=== PATIENT | female | born 1995 | race Caucasian/White ===

== ENCOUNTER → 2017-06-16 | Outpatient (CLI) | payer MEDICAID ==
[~2017-06-16] MED LIST: AMOX875 PO; NAPR500 PO
== END ==
LOC: HPND 08:59
PROVIDERS: ATTEND Obstetrics & Gynecology
DX: O36.63X1 Maternal care for excessive fetal growth, third trimester, fetus 1 (principal); Z3A.00 Weeks of gestation of pregnancy not specified
CPT/HCPCS: 76816

== ENCOUNTER 2017-06-30 18:33 | Emergency (ER) | payer MEDICAID ==
--- NOTE | 2017-06-30 19:02 | PD ---
HPI Chief Complaint Swelling, headache Travel History International Travel<30 Days: No Contact w/Intl Traveler<30Days: No Known Affected Area: No History of Present Illness HPI 22-year-old 012, IUP at 35.0 care uncomplicated by patient report. The patient presents reporting that she's been swelling "really bad" over the past 1 month, with the swelling increasing over the past 2 days. She also reports an associated headache that she has had 6 hours. She reports the headache did not resolve with Tylenol. She reports that she occasionally has visual spots throughout the day and these occur about 4 times per day. She reports good movement. She denies any leaking fluid or vaginal bleeding. She denies any painful contractions or cramping. She reports that her mother called Dr. Tariq's office about the headache and swelling and she was instructed to come to the hospital. Weeks Gestation: 35 Para: 2 : 4 History Past Medical History Medical History: Denies Significant Hx Obstetric History Obstetric History 012 2 full-term NSVDs SAB 1 Past Surgical History Narrative Surgical D&C Family History Family History: Negative Social History Alcohol Use: No Tobacco Use: No Substance Abuse: No Allergies-Medications (Allergen,Severity, Reaction): Coded Allergies: No Known Allergies (Unverified , 04/16/15) Home Meds Active Scripts Naproxen (Naprosyn) 500 Mg Tab, 500 MG PO BID, #20 TAB Prov:Louisa Craig MD 01/14/16 Reported Medications Amoxicillin (Amoxicillin) 875 Mg Tab, 875 MG PO BID, #14 TAB 01/14/16 Review of Systems Except as stated in HPI: all other systems reviewed are Neg Eyes: Visual changes Neurologic: Headache Physical Exam Narrative GENERAL: Well-nourished, well-developed patient. SKIN: Warm and dry. HEAD: Normocephalic and atraumatic. EYES: No scleral icterus. No injection or drainage. ENT: No nasal drainage noted. Mucous membranes pink. Airway patent. NECK: Supple, trachea midline. No JVD. CARDIOVASCULAR: Regular rate and rhythm without murmurs, gallops, or rubs. RESPIRATORY: Breath sounds equal bilaterally. No accessory muscle use. BREASTS: Deferred. ABDOMEN/GI: Abdomen soft, non-tender, bowel sounds present, no rebound, no guarding Gravid GENITOURINARY: External Genitalia: intact and normal in appearance BUS glands: [-] Cervix: [-] Dilatation: [-] Effacement: [-] Station: [-] Presentation: [-] Membranes: [intact or ruptured] Uterine Contractions: [-] FHT's: See separate note. heart rate baseline 120s with moderate long- term variability, good accelerations, no decelerations EXTREMITIES: No cyanosis or edema. BACK: Nontender without obvious deformity. No CVA tenderness. NEUROLOGICAL: Awake and alert. Motor and sensory grossly within normal limits. Five out of 5 muscle strength in all muscle groups. Normal speech. DT are 2+. Psychiatric: Grossly normal memory and affect Musculoskeletal: Grossly normal range of motion, gait, muscle strength Data Data Orders Orders Vital Signs (Adult) .ON ADMISSION (06/30/17 18:54) ^ Labor Status (06/30/17 18:54) Urinalysis - C+S If Indicated (06/30/17 18:54) ^ Non Stress Test (06/30/17 18:54) ^ Hydration (06/30/17 18:54) Cbc No Diff, Includes Plts (06/30/17 18:54) Comprehensive Metabolic Panel (06/30/17 18:54) Uric Acid (06/30/17 18:54) Protein Creat Ratio, Random Ur (06/30/17 18:54) MDM Narrative Course / MDM Assessment/plan: 1. IUP at 35.0 2. Headache, swelling, and visual changes: Normal blood pressure on presentation, no evidence of preeclampsia on laboratory evaluation with normal protein creatinine ratio, normal LFTs, normal platelets, and normal uric acid. Strict preeclampsia precautions were given. 3. well-being: Reassuring testing with reactive NST and category 1 heart rate tracing. FHR was reassuring and appropriate for gestational age. kick counts daily 4. No evidence of labor: Strict labor precautions 5. Follow up with Dr. Tariq in 2-3 days or sooner if needed 6. Mild hypokalemia: Discussed potassium results of 3.2 with patient, offered Rx for KCL however patient declined, patient stated she'll E additional bananas and will follow up with Dr. Tariq as she is scheduled. Will notify Dr. Tariq of laboratory finding. Diagnosis Diagnosis: Primary Impression: 35 weeks gestation of Disposition: 01 DISCHARGE HOME Moraima Thornton MD Jun 30, 2017 19:02
--- NOTE | 2017-06-30 19:12 | HHI.PR ---
Subjective Remarks NST report Indications: IUP at 35 weeks, headache, swelling, visual changes heart rate baseline in the 120s with good accelerations and moderate long- term variability, no decelerations, FHR reassuring and appropriate for gestational age Follow-up as clinically indicated Final diagnosis: IUP at 35 weeks, headache/swelling/visual changes but no evidence of preeclampsia Moraima Thornton MD Jun 30, 2017 19:12
[2017-06-30] MEDS ORDERED: ACETAMIN 325 MG/BUTALBITAL 50 MG/CAFFEINE 40 MG TAB PO ONE (19:15)
[2017-06-30 19:24] VITALS: BP 117/60; PULSE 79; RESP 18
[2017-06-30 19:39] LABS: HEMATOCRIT 29.1 % (35.0-46.0); MEAN CELL VOLUME 89.3 FL (80.0-100.0); MEAN CORPUSCULAR HEMOGLOBIN 29.3 PG (27.0-34.0); MEAN CORPUSCULAR HGB CONC 32.8 % (32.0-36.0); PLATELET COUNT 291 TH/MM3 (150-450); RED BLOOD COUNT 3.26 MIL/MM3 (4.00-5.30); RED CELL DISTRIBUTION WIDTH 13.1 % (11.6-17.2); REVIEW FLAG FINAL; WHITE BLOOD COUNT 14.2 TH/MM3 (4.0-11.0)
[2017-06-30 19:42] LABS: BACTERIA, URINE RARE /hpf; BLOOD, URINE NEG (NEG); COMMENT (UR) CULT NOT INDICATED; CULTURE IF INDICATED CULT NOT INDICATED; GLUCOSE,URINE NEG (NEG); KETONE, URINE NEG (NEG); MUCUS URINE FEW /lpf (OCC); NITRITE,URINE NEG (NEG); PH, URINE 6.5 (5.0-8.5); SQUAMOUS EPITHELIAL CELL URINE 12 /hpf (0-5); URINE COLOR YELLOW (YELLW/STRAW)
[2017-06-30 21:04] LABS: ANION GAP 10 MEQ/L (5-15); AST (GOT) 10 U/L (15-37); BICARBONATE 20.7 MEQ/L (21.0-32.0); BLOOD UREA NITROGEN 7 MG/DL (7-18); CHLORIDE 108 MEQ/L (98-107); GLOMERULAR FILTRATION RATE 170 ML/MIN (>89); POTASSIUM 3.2 MEQ/L (3.5-5.1); SODIUM (NA) 139 MEQ/L (136-145); URIC ACID 2.8 MG/DL (2.6-6.0)
[2017-06-30 21:05] LABS: ALT (GPT) 14 U/L (10-53)
[2017-06-30 21:07] LABS: ALKALINE PHOSPHATASE 124 U/L (45-117); TOTAL BILIRUBIN ADULT 0.2 MG/DL (0.2-1.0)
== END 2017-06-30 21:40 | disposition home or self-care (01) ==
LOC: HOBED 18:33
DX: O26.93 Pregnancy related conditions, unspecified, third trimester (principal); R51 Headache; Z3A.35 35 weeks gestation of pregnancy; E87.6 Hypokalemia
CPT/HCPCS: 36415; 59025; 80053; 81001; 82570; 84156; 84550; 85027; 99283

== ENCOUNTER 2017-07-06 21:41 | Emergency (ER) | payer MEDICAID ==
--- NOTE | 2017-07-06 23:08 | PD ---
HPI Chief Complaint Low back pain possibly leaking fluid Date Seen: Jul 06, 2017 Time Seen: 23:00 Travel History International Travel<30 Days: No Contact w/Intl Traveler<30Days: No Known Affected Area: No History of Present Illness HPI 22-year-old white female 36 weeks tomorrow and go see Dr. Tariq for care and she called him and told about her low back pain today and he told coming checked out, she thought she might be leaking fluid her amnio sure is negative. heart rate tracing is reactive she is not jef, patient has been working on a daily basis. She has small children but her mother takes care of them so she can rest Weeks Gestation: 35 Para: 2 : 4 Miscarriage: 1 History Obstetric History Obstetric History 2 vaginal deliveries and one early loss Social History Alcohol Use: No Tobacco Use: No Substance Abuse: No Allergies-Medications (Allergen,Severity, Reaction): Coded Allergies: No Known Allergies (Unverified , 04/16/15) Home Meds Active Scripts Naproxen (Naprosyn) 500 Mg Tab, 500 MG PO BID, #20 TAB Prov:Louisa Craig MD 01/14/16 Reported Medications Amoxicillin (Amoxicillin) 875 Mg Tab, 875 MG PO BID, #14 TAB 01/14/16 Review of Systems General / Constitutional: No: Fever, Weight Gain, Chills, Other Eyes: No: Diploplia, Blurred Vision, Visual changes, Pain, Photophobia HENT: No: Headaches, Vertigo, Lightheadedness Cardiovascular: No: Irregular Rhythm, Chest Pain or Discomfort, Palpitations, Tachycardia, Syncope, Varicosities, Edema, Cyanosis Respiratory: No: Cough, Short of Breath, Other Gastrointestinal: No: Nausea, Vomiting, Diarrhea Genitourinary: No: Decreased Urinary Output, Oliguria Musculoskeletal: No: Limited ROM, Weakness, Cramping, Edema, Pain Skin: No Rash, No Itching, No Dryness, No Lumps, No Change in Pigmentation, No Change in Nails, No Alopecia, No Lesions Neurologic: No: Weakness, Dizziness, Syncope, Focal Abnormalities, Coordination Problem, Headache, Slurred Speech, Seizures Psychiatric: No: Depression, Suicidal Ideations, Homicidal Ideation Endocrine: No: Heat Intolerance, Cold Intolerance, Polydipsia, Polyuria, Other Physical Exam Narrative GENERAL: Well-nourished, well-developed patient. SKIN: Warm and dry. HEAD: Normocephalic and atraumatic. EYES: No scleral icterus. No injection or drainage. ENT: No nasal drainage noted. Mucous membranes pink. Airway patent. NECK: Supple, trachea midline. No JVD. CARDIOVASCULAR: Regular rate and rhythm without murmurs, gallops, or rubs. RESPIRATORY: Breath sounds equal bilaterally. No accessory muscle use. BREASTS: Bilateral exam showed no masses , no retractions, no nipple discharge. ABDOMEN/GI: Abdomen soft, non-tender, bowel sounds present, no rebound, no guarding Gravid to [36-] weeks size Fundal Height: [-36] GENITOURINARY: External Genitalia: intact and normal in appearance BUS glands: [-] Cervix: [post-] Dilatation: [FT-] Effacement: [-thick] Station: [high-] Presentation: [-vtx] Membranes: [intact amnisure neg] Uterine Contractions: [-0] FHT's: Category: [-1] Baseline: [133-] Reactive: [-yes] Variability: [mod-] Decels: [-0] EXTREMITIES: No cyanosis or edema. BACK: Nontender without obvious deformity. No CVA tenderness. NEUROLOGICAL: Awake and alert. Motor and sensory grossly within normal limits. Five out of 5 muscle strength in all muscle groups. Normal speech. Data Data Labs Urine shows to 1+ protein otherwise negative MDM Interpretation(s) Patient is 22-year-old white female 36 weeks tomorrow presents with low back pain. She said the several days of this is worsening. She denies bleeding , thought she might be leakage of fluid but the amnio sure is negative , baby is active, heart rate tracing is reactive, no contractions, urinalysis shows 1+ protein otherwise is negative no infection seen she has no CVA tenderness and no real tenderness to palpation of the low back either that' s where she hurts the lumbar area. Plan Plan to have the patient a shot of fentanyl for pain, home to bedrest with heating pad or hot bath A, bedrest as much as possible. Request water hydrate use Tylenol liberally. Follow-up with her OB provider Diagnosis Diagnosis: Primary Impression: Low back pain during in third trimester Disposition: 01 DISCHARGE HOME Condition: Stable Akil Pinto II, MD Jul 06, 2017 23:08
== END 2017-07-06 23:46 | disposition home or self-care (01) ==
LOC: HOBED 21:41
DX: O26.893 Other specified pregnancy related conditions, third trimester (principal); M54.5 Low back pain; Z3A.35 35 weeks gestation of pregnancy
CPT/HCPCS: 59025; 84112; 96372; 99284; J3010

== ENCOUNTER → 2017-07-19 | Outpatient (CLI) | payer MEDICAID | LOC: HPND 10:37 | PROVIDERS: ATTEND Obstetrics & Gynecology | DX: O26.843 Uterine size-date discrepancy, third trimester (principal); Z3A.37 37 weeks gestation of pregnancy | CPT/HCPCS: 76816 ==

== ENCOUNTER 2017-07-20 20:46 | Emergency (ER) | payer MEDICAID ==
[~2017-07-20] VITALS: Ht 175.3 cm; Wt 98.0 kg
--- NOTE | 2017-07-20 23:13 | PD ---
HPI Chief Complaint Cramping, lower back cramps Travel History International Travel<30 Days: No Contact w/Intl Traveler<30Days: No Known Affected Area: No History of Present Illness HPI 22-year-old 012, IUP at 37.6 care uncomplicated per patient report The patient presents complaining of cramping and lower back pain. She describes the lower back pain as lower back cramping which are further described as "back contractions". She reports that she has been experiencing symptoms since this morning; however over the past 2 hours prior to presentation , she reports that these cramping and contractions were increased in intensity and have increased to every 5-6 minutes. She denies any leaking of fluid or vaginal bleeding although reported some increased discharge after the vaginal exam. She reports that initially the baby was not moving as frequently today however upon presentation she reports good movement that is normal. She reports that she was last checked in the office was 3 cm dilated. Weeks Gestation: 37 Para: 2 : 4 History Past Medical History Medical History: Denies Significant Hx Obstetric History Obstetric History 012 2 SAB 1 Past Surgical History Narrative Surgical D&C Family History Narrative Family History Her mother has had a DVT and PE Social History Alcohol Use: No Tobacco Use: No Substance Abuse: No Allergies-Medications (Allergen,Severity, Reaction): Coded Allergies: No Known Allergies (Unverified Adverse Reaction, Unknown, 07/20/17) Home Meds Active Scripts Naproxen (Naprosyn) 500 Mg Tab, 500 MG PO BID, #20 TAB Prov:Louisa Craig MD 01/14/16 Reported Medications Amoxicillin (Amoxicillin) 875 Mg Tab, 875 MG PO BID, #14 TAB 01/14/16 Review of Systems Except as stated in HPI: all other systems reviewed are Neg Physical Exam Narrative GENERAL: Well-nourished, well-developed patient. SKIN: Warm and dry. HEAD: Normocephalic and atraumatic. EYES: No scleral icterus. No injection or drainage. ENT: No nasal drainage noted. Mucous membranes pink. Airway patent. NECK: Supple, trachea midline. No JVD. CARDIOVASCULAR: Regular rate and rhythm without murmurs, gallops, or rubs. RESPIRATORY: Breath sounds equal bilaterally. No accessory muscle use. BREASTS: Deferred ABDOMEN/GI: Abdomen soft, non-tender, bowel sounds present, no rebound, no guarding Gravid GENITOURINARY: External Genitalia: intact and normal in appearance. Grossly normal BUS. There are no cervical or vaginal masses noted. There is grossly normal rugae, and physiologic discharge is noted. Her initial vaginal exam was 3/50/high and posterior. Subsequent layers speculum examination was performed with negative Valsalva and no pooling or other evidence of ROM. Amniosure was negative FHT's: Please see separately dictated BPP report. heart rate baseline is in the 130s with moderate long-term variability, good accelerations, no decelerations on review of the tracing. FHR is reassuring and appropriate for gestational age. EXTREMITIES: No cyanosis or edema. BACK: Nontender without obvious deformity. NEUROLOGICAL: Awake and alert. Motor and sensory grossly within normal limits. Five out of 5 muscle strength in all muscle groups. Normal speech Psychiatric: Grossly normal memory and affect Musculoskeletal: Grossly normal ROM, gait, muscle strength. MDM Plan Assessment/plan: 1. IUP at 37.6 2. Contractions at term: No evidence of active labor with unchanged cervical exam greater than 1 hour and irregular contraction pattern, strict labor precautions. No evidence of rupture of membranes with negative amniosure, strict PROM precautions. 3. Reassuring testing with reactive NST and biophysical profile 8 out of 8 (10 out of 10 with reactive NST). heart rate tracing reassuring and appropriate for gestational age. kick counts daily. 4. Follow-up with Dr. Tariq in 2-3 days or sooner if needed 5. Strict labor precautions Diagnosis Diagnosis: Primary Impression: 37 weeks gestation of Additional Impression: False labor before 37 completed weeks of gestation Disposition: 01 DISCHARGE HOME Condition: Moraima Calixto MD Jul 20, 2017 23:13
--- NOTE | 2017-07-20 23:20 | PD ---
History of Present Illness History of Present Illness NST/BPP report Indications: IUP at 37 weeks, decreased movement earlier today however now reporting normal movement, contractions at term Biophysical profile was performed with greater than 30 seconds breathing, greater than 3 gross body movements, than 1 episode of flexion-extension , and normal ARABELLA of 13.16 with pockets measured as 5.35, 2.13, 2.66, and 3.02 FHR NST was performed Baseline 130s, moderate long-term variability, good accelerations, no decelerations consistent with reactive NST and category 1 heart rate tracing that is reassuring and appropriate for gestational age Follow-up: Patient is follow-up as clinically appropriate Final diagnosis: IUP at 37 weeks, reassuring testing, no evidence of active labor Moraima Thornton MD Jul 20, 2017 23:20
== END 2017-07-20 23:25 | disposition home or self-care (01) ==
LOC: HOBED 20:46
DX: O36.8130 Decreased fetal movements, third trimester, not applicable or unspecified (principal); Z3A.37 37 weeks gestation of pregnancy; Z79.899 Other long term (current) drug therapy
CPT/HCPCS: 76815; 84112

== ENCOUNTER 2017-07-26 11:48 | Emergency (ER) | payer MEDICAID ==
[~2017-07-26] VITALS: Ht 175.3 cm; Wt 99.3 kg
[2017-07-26 12:20] VITALS: BP 119/69; PULSE 90
--- NOTE | 2017-07-26 12:23 | PD ---
HPI Chief Complaint Elevated blood pressures and shortness of breath Date Seen: Jul 26, 2017 Time Seen: 12:00 (Clemente Jurado MD R1) Travel History International Travel<30 Days: No Contact w/Intl Traveler<30Days: No Known Affected Area: No (Clemente Jurado MD R1) History of Present Illness HPI 22-year-old at 38 weeks and 5 days presents to the ED after having elevated blood pressures and [facility] office. Patient states blood pressures were elevated in the 150s systolic over 80s diastolic. Patient also states that she has had trouble catching her breath both at rest and with exertion over the past couple days. Patient denies headache, vision changes, lower extremity swelling, fever, chills. Patient does state that she had left substernal chest pain several nights ago that has resolved and she has no chest pain currently. She also has had nausea, but this is unchanged from the rest of this . Patient reports good movement, no contractions, no vaginal bleeding, or gush of fluid. Weeks Gestation: 38 Para: 2 : 4 Miscarriage: 1 (Clemente Jurado MD R1) History Past Medical History Narrative Medical Elevated blood pressures during her last No hypertension at baseline No complications during this No other past medical history (Clemente Jurado MD) Obstetric History Obstetric History Both prior deliveries were vaginal and at term One miscarriage with D&C (Clemente Jurado MD R1) Past Surgical History Narrative Surgical D&C No other surgeries (Clemente Jurado MD) Social History Narrative Social History Lives with her boyfriend in the area Denies alcohol tobacco or drug use (Clemente Jurado MD R1) Allergies-Medications (Allergen,Severity, Reaction): Coded Allergies: No Known Allergies (Verified Adverse Reaction, Unknown, 07/26/17) Home Meds Active Scripts Naproxen (Naprosyn) 500 Mg Tab, 500 MG PO BID, #20 TAB Prov:Louisa Craig MD 01/14/16 Reported Medications Amoxicillin (Amoxicillin) 875 Mg Tab, 875 MG PO BID, #14 TAB 01/14/16 Review of Systems Except as stated in HPI: all other systems reviewed are Neg General / Constitutional: No: Fever, Chills Eyes: No: Blurred Vision, Visual changes HENT: No: Headaches Cardiovascular: Chest Pain or Discomfort Respiratory: Short of Breath Gastrointestinal: Nausea, No: Vomiting, Diarrhea Genitourinary: No: Dysuria (Clemente Jurado MD R1) Physical Exam Narrative GENERAL: Well-nourished, well-developed patient. SKIN: Warm and dry. HEAD: Normocephalic and atraumatic. EYES: No scleral icterus. No injection or drainage. ENT: No nasal drainage noted. Mucous membranes pink. Airway patent. NECK: Supple, trachea midline. No JVD. CARDIOVASCULAR: Regular rate and rhythm without murmurs, gallops, or rubs. RESPIRATORY: Breath sounds equal bilaterally. No accessory muscle use. ABDOMEN/GI: Abdomen soft, non-tender, bowel sounds present, no rebound, no guarding EXTREMITIES: No cyanosis, trace edema. BACK: Nontender without obvious deformity. No CVA tenderness. NEUROLOGICAL: Awake and alert. Motor and sensory grossly within normal limits. Five out of 5 muscle strength in all muscle groups. Normal speech. NST: Baseline 130's, reactive, moderate variability. Category I tracing. No decelerations (Clemente Jurado MD R1) Data Data Orders Orders Vital Signs (Adult) .ON ADMISSION (07/26/17 12:11) ^ Labor Status (07/26/17 12:11) ^ Non Stress Test (07/26/17 12:11) ^ Hydration (07/26/17 12:11) (Clemente Jurado MD R1) MDM Interpretation(s) 22-year-old at 38 weeks and 5 days presenting with elevated blood pressures at outside clinic. Blood pressure in OB ED was 119 systolic over 68 diastolic Plan Serial blood pressure within normal limits at this time. NST strip reactive with category 1 tracing was. Reassuring Patient denies significant preeclampsia-like symptoms No further workup at this time. Patient instructed to return if symptoms develop (Clemente Jurado MD R1) Diagnosis Diagnosis: Primary Impression: SOB (shortness of breath) Additional Impression: Nausea Ruled Out: Preeclampsia, Gestational hypertension Disposition: DISCHARGE HOME Condition: Stable Collaborating MD Comments Patient is normotensive presently. No urine protein in office. Serial blood pressures here are normal. Will follow up on as scheduled. (Riana De La Vega MD) Clemente Jurado MD R1 Jul 26, 2017 12:23 Riana De La Vega MD Jul 27, 2017 09:33
[2017-07-26 12:28] VITALS: TEMP 98.3
[2017-07-26 12:29] VITALS: RESP 18
[2017-07-28] MEDS ORDERED: PREN29CH PO (07:22)
== END 2017-07-26 13:27 | disposition home or self-care (01) ==
LOC: HOBED 11:48
DX: O26.893 Other specified pregnancy related conditions, third trimester (principal); R06.02 Shortness of breath; R11.0 Nausea; Z3A.38 38 weeks gestation of pregnancy
CPT/HCPCS: 59025

== ENCOUNTER 2017-07-28 05:58 | Inpatient (IN) | payer MEDICAID ==
[2017-07-28] VITALS (52 sets, daily range): BP systolic 91–125; BP diastolic 29–82; PULSE 61–91; RESP 17–20; TEMP 97.8–98.2; O2SAT 99
[~2017-07-28] VITALS: Ht 175.3 cm; Wt 99.0 kg
[2017-07-28] MEDS ORDERED: LIDOCAINE HCL 1% 50 ML VIAL INFIL PRN (06:30)
[2017-07-28] MEDS ORDERED: OXYTOCIN 30 UNITS/NS 500ML PREMIX IV SCH (06:30)
[2017-07-28] MEDS ORDERED: MINERAL OIL 10 ML VIAL TOPICAL PRN (06:30)
[2017-07-28] MEDS ORDERED: NS 1000 ML IV PRN (06:30)
[2017-07-28] MEDS ORDERED: CITRIC ACID-SODIUM CITRATE LIQ 30 ML UDC PO SCH (06:30)
[2017-07-28] MEDS ORDERED: NS 500 ML BOLUS IV PRN (06:30)
[2017-07-28] MEDS ORDERED: LACTATED RINGER'S 1000 ML IV SCH (06:30)
[2017-07-28] MEDS ORDERED: OXYTOCIN 30 UNITS 500ML PREMIX IV ONE (06:30)
[2017-07-28] MEDS ORDERED: LACTATED RINGER'S 1000 ML BOLUS IV PRN (06:30)
[2017-07-28] MEDS ORDERED: LIDOCAINE HCL 1% 50 ML VIAL I-DERMAL PRN (06:30)
[2017-07-28] MEDS ORDERED: PENICILLIN G POT 5,000,000 UNITS/NS 100 ML (Mini-Bag Plus) IV ONE ×2 (06:30)
[2017-07-28 07:04] LABS: AUTOMATED NEUTROPHIL # 9.9 TH/MM3 (1.8-7.7); BASOPHIL % 0.3 % (0.0-2.0); EOSINOPHIL # 0.2 TH/MM3 (0-0.4); EOSINOPHIL % 1.2 % (0.0-4.0); HEMATOCRIT 29.7 % (35.0-46.0); HEMO FLAGS DIFF FINAL; LYMPH % 20.3 % (9.0-44.0); LYMPHOCYTE # 2.9 TH/MM3 (1.0-4.8); MEAN CELL VOLUME 87.2 FL (80.0-100.0); MEAN CORPUSCULAR HEMOGLOBIN 28.5 PG (27.0-34.0); MEAN CORPUSCULAR HGB CONC 32.6 % (32.0-36.0); MONO % 9.6 % (0.0-8.0); NEUT % 68.6 % (16.0-70.0); PLATELET COUNT 319 TH/MM3 (150-450); RED BLOOD COUNT 3.41 MIL/MM3 (4.00-5.30); RED CELL DISTRIBUTION WIDTH 14.3 % (11.6-17.2); WHITE BLOOD COUNT 14.5 TH/MM3 (4.0-11.0)
[2017-07-28 07:18] LABS: BACTERIA, URINE RARE /hpf; BLOOD, URINE NEG (NEG); COMMENT (UR) CULT NOT INDICATED; CULTURE IF INDICATED CULT NOT INDICATED; GLUCOSE,URINE NEG (NEG); KETONE, URINE NEG (NEG); MUCUS URINE FEW /lpf (OCC); NITRITE,URINE NEG (NEG); PH, URINE 6.5 (5.0-8.5); SQUAMOUS EPITHELIAL CELL URINE 6 /hpf (0-5); URINE COLOR YELLOW (YELLW/STRAW)
[2017-07-28] MEDS ORDERED: PREN29CH PO ×2 (07:22)
--- NOTE | 2017-07-28 08:23 | MH ---
cc: LANA BATES DATE OF ADMISSION: 07/28/2017 HISTORY OF PRESENT ILLNESS Mr. Toure is a 22-year-old white female para 2-0-1-2 who is admitted for elective induction of labor. The she is 39 weeks by early ultrasound and dates. She was seen in the office and was checked; she was 3 cm, 70%, vertex -2 and soft. She asked for induction today. She is being brought in for rupture of membranes and Pitocin if needed. HER PAST OB HISTORY She is para 2-0-1-2. She has had two NSVDs. She had a D&C for a missed AB. 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 Trichomonas which was treated earlier in . PAST MEDICAL HISTORY Remarkable for D&C. PAST MEDICAL HISTORY Remarkable for sleep apnea. ALLERGIES No known drug allergies. CURRENT MEDICATIONS 1. vitamins. 2. Zantac. SOCIAL HISTORY She does not smoke, does not drink, does not take drugs. She is single. FAMILY HISTORY Remarkable for lung cancer and blood clots. REVIEW OF SYSTEMS No headaches, no shortness of breath, chest pressure or pain. She is having no real abdominal pain or regular uterine contractions. She denies any bleeding or rupture of membranes. The baby is moving well. PHYSICAL EXAMINATION GENERAL: A well-developed, well-nourished female in no acute distress, resting comfortably. VITAL SIGNS: Her temperature is 98.2, her pulse was 91. Her respirations are 18. Her blood pressure is 120/66. HEENT: Normocephalic, atraumatic. NECK: Supple. Trachea is in the midline. CHEST: Clear to auscultation and percussion. HEART: Regular rate and rhythm. ABDOMEN: The abdomen is soft and nontender. Fundal height is appropriate. PELVIC EXAM: The cervix is 3 cm, dilated, 70% effaced, vertex, -2 and soft. EXTREMITIES: No clubbing, cyanosis, edema. Calves are normal. ASSESSMENT AND PLAN 1. Intrauterine at 39+ weeks for induction of labor with a nice inducible cervix. 2. Positive GBS. We will start her on penicillin LELA. R. MD PEDRO Minor/CELINE /7:56 AM /8:06 AM
[2017-07-28] MEDS ORDERED: fentaNYL 2MCG-BUPIV 0.125% INJ 100 ML ONE (09:45)
[2017-07-28] MEDS ORDERED: ePHEDrine/NS 25 MG/5 ML SYR ONE (09:53)
[2017-07-28] MEDS ORDERED: PENICILLIN G POT 2,500,000 UNITS/NS 100 ML IV SCH ×2 (11:00)
[2017-07-28] MEDS ORDERED: fentaNYL 2MCG-BUPIV 0.125% 100 ML EPIDURAL SCH (12:45)
[2017-07-28] MEDS ORDERED: ePHEDrine/NS 25 MG/5 ML SYR IV PUSH PRN (12:45)
[2017-07-28] MEDS ORDERED: DO NOT ADMINISTER ANTICOAGULANTS PRN (12:45)
[2017-07-28] MEDS ORDERED: NO SYSTEM NARCOTICS PRN (12:45)
[2017-07-28] MEDS ORDERED: BENZOCAINE 20% TOPICAL SPRAY 60 ML CAN TOPICAL PRN (14:30)
[2017-07-28] MEDS ORDERED: WITCH HAZEL 50%/GLYCERIN 12.5% 40 PAD JAR TOPICAL PRN (14:30)
[2017-07-28] MEDS ORDERED: oxyCODONE/ACETAMINOPHEN 5 MG/325 MG TAB PO PRN (14:30)
[2017-07-28] MEDS ORDERED: ZOLPIDEM TARTRATE 5 MG TAB PO PRN (14:30)
[2017-07-28] MEDS ORDERED: ACETAMINOPHEN 325 MG TAB PO PRN (14:30)
[2017-07-28] MEDS ORDERED: ONDANSETRON ODT 4 MG TAB PO PRN (14:30)
[2017-07-28] MEDS ORDERED: ALUMINUM/MAGNESIUM/SIMETH 30 ML CUP PO PRN (14:30)
[2017-07-28] MEDS ORDERED: SODIUM CHLORIDE 0.9% FLUSH 10 ML FLUSH IV FLUSH PRN (14:30)
--- NOTE | 2017-07-28 14:33 | PD.OB.DELI ---
Weeks gestation: 39 Gest age assessed date: Jul 28, 2017 Gest age assessed time: 03:00 Pt started active labor?: Yes Active labor start date: Jul 28, 2017 Active labor start time: 11:24 Medical induction of labor?: No Artificial rupture of membrane: Yes Artificial ROM date: Jul 28, 2017 Artifical ROM time: 07:40 Anesthesia: Epidural Episiotomy: None Vaginal Delivery: Normal Presentation: Occiput anterior Nuchal Cord: x2 Delayed cord clamping (45 sec): Yes Infant: Male Delivery date: Jul 28, 2017 Delivery time: 14:15 One Minute : 8 Five Minute : 9 Weight: 7/7 Placenta: Spontaneous delivery, Intact, 3 vessel cord Laceration: No lacerations Estimated blood loss: 300 Additional Information nice delivery of Nate Benson MD Jul 28, 2017 14:33
[2017-07-28] MEDS ORDERED: OXYTOCIN 30 UNITS-500ML PREMIX 500 ML IV ONE (15:00)
[2017-07-28] MEDS ORDERED: DIPHTH/TETANUS/ACEL PERTUSSIS (BOOSTER) 0.5 ML VIAL/PFS IM ONE (16:00)
[2017-07-28] MEDS ORDERED: MEASLES, MUMPS, RUBELLA VACCINE 0.5 ML VIAL SQ ONE (16:00)
[2017-07-28] MEDS ORDERED: OXYTOCIN 30 UNITS-500ML PREMIX 500 ML IV SCH (16:00)
[2017-07-28] MEDS: IBUPROFEN 600 MG TAB PO PRN ×2 (16:42→22:37)
[2017-07-28] MEDS: SODIUM CHLORIDE 0.9% FLUSH 10 ML FLUSH IV FLUSH SCH (21:00)
[2017-07-28] MEDS: oxyCODONE/ACETAMINOPHEN 5 MG/325 MG TAB PO PRN (22:38)
[2017-07-28] MEDS: DOCUSATE SODIUM 50 MG/SENNA 8.6 MG TAB PO PRN (22:38)
[2017-07-29] MEDS: IBUPROFEN 600 MG TAB PO PRN ×4 (04:33→23:09)
[2017-07-29] MEDS: oxyCODONE/ACETAMINOPHEN 5 MG/325 MG TAB PO PRN ×2 (04:34→23:09)
[2017-07-29 08:00] VITALS: BP 116/69; PULSE 66; RESP 16; TEMP 97.7
[2017-07-29] MEDS: SODIUM CHLORIDE 0.9% FLUSH 10 ML FLUSH IV FLUSH SCH (09:00)
[2017-07-29] MEDS: DOCUSATE SODIUM 50 MG/SENNA 8.6 MG TAB PO PRN ×2 (10:23→23:09)
--- NOTE | 2017-07-29 13:22 | HHI.OB ---
Subjective Post Day: 1 Objective Vitals/I&O Vital Signs Date Time Temp Pulse Resp B/P (MAP) Pulse Ox O2 Delivery O2 Flow Rate FiO2 07/29/17 08:00 97.7 66 16 116/69 (85) 07/29/17 05:33 18 07/29/17 05:33 18 07/28/17 19:35 98.0 99 07/28/17 19:35 62 18 122/62 (82) 07/28/17 16:15 98.2 74 19 113/69 (84) 07/28/17 15:45 70 113/49 (70) 07/28/17 15:45 18 07/28/17 15:30 74 116/60 (78) 07/28/17 15:30 18 07/28/17 15:15 78 114/59 (77) 07/28/17 15:04 98.2 17 07/28/17 15:00 76 115/61 (79) 07/28/17 14:46 18 07/28/17 14:45 19 07/28/17 14:45 78 118/59 (78) 07/28/17 14:31 73 108/51 (70) 07/28/17 14:30 19 07/28/17 14:29 87 112/70 (84) 07/28/17 13:30 79 107/71 (83) Objective Remarks GENERAL: Well-nourished, well-developed patient. CARDIOVASCULAR: Regular rate and rhythm without murmurs, gallops, or rubs. RESPIRATORY: Breath sounds equal bilaterally. No accessory muscle use. ABDOMEN/GI: Abdomen soft, non-tender. Fundus: Firm, non-tender at umbilicus. GENITOURINARY: Light to moderate bleeding. EXTREMITIES: No cyanosis or edema, non-tender, without signs of DVT. Medications and IVs Current Medications Medications (Trade) Dose Ordered Sig/Denisa Route Start Time Stop Time Status Last Admin (NS Flush) 2 ml BID IV FLUSH 07/28/17 21:00 (NS Flush) 2 ml UNSCH PRN IV FLUSH 07/28/17 14:30 (Tylenol) 650 mg Q4H PRN PO 07/28/17 14:30 07/28/17 17:57 (Motrin) 600 mg Q6H PRN PO 07/28/17 14:30 07/29/17 10:24 (Percocet 5-325 Mg) 1 tab Q4H PRN PO 07/28/17 14:30 07/28/17 18:21 (Percocet 5-325 Mg) 2 tab Q4H PRN PO 07/28/17 14:30 07/29/17 04:34 (Americaine 20% Top Spr) 1 spray Q4H PRN TOPICAL 07/28/17 14:30 (Tucks Pads) 1 applic QID PRN TOPICAL 07/28/17 14:30 (Rhonda-Colace) 2 tab Q12H PRN PO 07/28/17 14:30 07/29/17 10:23 (Ambien) 5 mg HS PRN PO 07/28/17 14:30 (Mag-Al Plus Susp Liq) 15 ml Q8H PRN PO 07/28/17 14:30 (Zofran Odt) 4 mg Q6H PRN PO 07/28/17 14:30 Assessment/Plan Problem List: (1) (normal spontaneous vaginal delivery) ICD Codes: O80 - Encounter for full-term uncomplicated delivery Assessment and Plan PT DOING WELL PAIN WELL MANAGED WITH ORAL PAIN MEDICATION BONDING WITH INFANT ROUTINE CARE Discharge Planning DC HOME TOMORROW PT WAS GBS + Attending Attestation PT SEEN WITH Shagufta VILLAFUERTE WHO IS COMPLETING THIS NOTE Nate Tariq MD Jul 29, 2017 13:22
--- NOTE | 2017-07-29 13:24 | HHI.DCPOC ---
Discharge Care Plan Diagnosis: (1) Anemia (2) (normal spontaneous vaginal delivery) Your Health Problems Are: Vaginal delivery Report Symptoms to Your Doctor -Temperature above 100.5 degrees -Redness, of incision or excessive or foul smelling drainage -Unusual pain or calf pain -Increased vaginal bleeding -Painful or difficulty urinating -Feelings of extreme sadness or anxiety after 2 weeks Goals to Promote Your Health * To prevent worsening of your condition and complications * To maintain your health at the optimal level Directions to Meet Your Goals Take your medications as prescribed Follow your dietary instruction Follow activity as directed Ensure plenty of rest for recovery Drink fluids for hydration Keep your appointments as scheduled Take your immunizations and boosters as scheduled If your symptoms worsen call your PCP, if no PCP go to Urgent Care Center or Emergency Room Smoking is Dangerous to Your Health. Avoid second hand smoke Call the 24-hour crisis hotline for domestic abuse at Nate Tariq MD Jul 29, 2017 13:23
[2017-07-29 19:56] VITALS: RESP 18
[2017-07-29 19:57] VITALS: BP 114/67; PULSE 72; TEMP 97.9
[2017-07-30] MEDS: oxyCODONE/ACETAMINOPHEN 5 MG/325 MG TAB PO PRN ×3 (03:31→14:29)
[2017-07-30] MEDS: SODIUM CHLORIDE 0.9% FLUSH 10 ML FLUSH IV FLUSH SCH (04:03)
[2017-07-30 08:00] VITALS: BP 109/70; PULSE 63; RESP 18; TEMP 97.8
[2017-07-30] MEDS: IBUPROFEN 600 MG TAB PO PRN (09:22)
[2017-07-30] MEDS ORDERED: IBUP-232 PO (13:53)
[2017-07-30] MEDS ORDERED: OXYC1TAB63 PO (13:53)
--- NOTE | 2017-07-30 14:03 | HHI.OB ---
Subjective Post Day: 2 Remarks Doing well, Pain is well controlled but was shamed into not taking the percocet. Objective Vitals/I&O Vital Signs Date Time Temp Pulse Resp B/P (MAP) Pulse Ox O2 Delivery O2 Flow Rate FiO2 07/30/17 08:00 63 109/70 (83) 07/30/17 08:00 97.8 07/30/17 08:00 18 07/29/17 19:57 97.9 72 114/67 (83) 07/29/17 19:56 18 Objective Remarks GENERAL: Well-nourished, well-developed patient. CARDIOVASCULAR: Regular rate and rhythm without murmurs, gallops, or rubs. RESPIRATORY: Breath sounds equal bilaterally. No accessory muscle use. ABDOMEN/GI: Abdomen soft, non-tender. Fundus: Firm, non-tender at umbilicus. GENITOURINARY: Light to moderate bleeding. EXTREMITIES: No cyanosis or edema, non-tender, without signs of DVT. Medications and IVs Current Medications Medications (Trade) Dose Ordered Sig/Denisa Route Start Time Stop Time Status Last Admin (NS Flush) 2 ml BID IV FLUSH 07/28/17 21:00 (NS Flush) 2 ml UNSCH PRN IV FLUSH 07/28/17 14:30 (Tylenol) 650 mg Q4H PRN PO 07/28/17 14:30 07/28/17 17:57 (Motrin) 600 mg Q6H PRN PO 07/28/17 14:30 07/30/17 09:22 (Percocet 5-325 Mg) 1 tab Q4H PRN PO 07/28/17 14:30 07/28/17 18:21 (Percocet 5-325 Mg) 2 tab Q4H PRN PO 07/28/17 14:30 07/30/17 09:22 (Americaine 20% Top Spr) 1 spray Q4H PRN TOPICAL 07/28/17 14:30 (Tucks Pads) 1 applic QID PRN TOPICAL 07/28/17 14:30 (Rhonda-Colace) 2 tab Q12H PRN PO 07/28/17 14:30 07/29/17 23:09 (Ambien) 5 mg HS PRN PO 07/28/17 14:30 (Mag-Al Plus Susp Liq) 15 ml Q8H PRN PO 07/28/17 14:30 (Zofran Odt) 4 mg Q6H PRN PO 07/28/17 14:30 Assessment/Plan Problem List: (1) (normal spontaneous vaginal delivery) ICD Codes: O80 - Encounter for full-term uncomplicated delivery Assessment and Plan PT DOING WELL PAIN WELL MANAGED WITH ORAL PAIN MEDICATION BONDING WITH INFANT ROUTINE CARE Discharge Planning DC HOME PT WAS GBS + Nate Tariq MD Jul 30, 2017 14:03
== END 2017-07-30 14:58 | disposition home or self-care (01) | DRG 775 ==
LOC: H2EA 05:58 → H1EA 16:12
PROVIDERS: ADMIT Obstetrics & Gynecology; ATTEND Obstetrics & Gynecology
PROC: 10E0XZZ Delivery of Products of Conception, External Approach (ICD-10-PCS; principal; 2017-07-28)
PROC: 10907ZC Drainage of Amniotic Fluid, Therapeutic from Products of Conception, Via Natural or Artificial Opening (ICD-10-PCS; 2017-07-28)
PROC: 3E0R3BZ Introduction of Anesthetic Agent into Spinal Canal, Percutaneous Approach (ICD-10-PCS; 2017-07-28)
PROC: 00HU33Z Insertion of Infusion Device into Spinal Canal, Percutaneous Approach (ICD-10-PCS; 2017-07-28)
DX: O75.89 Other specified complications of labor and delivery (principal); O99.354 Diseases of the nervous system complicating childbirth; G47.30 Sleep apnea, unspecified; O99.824 Streptococcus B carrier state complicating childbirth; O26.899 Other specified pregnancy related conditions, unspecified trimester; R87.612 Low grade squamous intraepithelial lesion on cytologic smear of cervix (LGSIL); O99.013 Anemia complicating pregnancy, third trimester; D64.9 Anemia, unspecified; Z37.0 Single live birth; Z3A.39 39 weeks gestation of pregnancy
CPT/HCPCS: 59025; 80307; 81001; 85025; 90707; 90715; J2540; J2590; J3010; J7120